=== PATIENT | female | born 1935 | race Caucasian/White ===

== ENCOUNTER → 2023-08-24 07:29 | Outpatient (REF) | payer MEDICARE, OTHER, SELFPAY | LOC: DHCBS MAIN 07:29 | PROVIDERS: ATTENDING PHYSICIAN Physician Assistant; FAMILY PHYSICIAN Nurse Practitioner Adult Health | DX: I48.19 Other persistent atrial fibrillation (principal); R53.1 Weakness; R42 Dizziness and giddiness | CPT/HCPCS: 93306 ==